=== PATIENT | female | born 1995 | race Caucasian/White ===

== ENCOUNTER 2023-06-30 18:47 | Outpatient (RCR) | payer MEDICAID, SELFPAY | END 2023-06-30 23:59 | disposition home or self-care (01) | LOC: RPT 18:47 | PROVIDERS: ATTENDING PHYSICIAN Physician Assistant | DX: M54.6 Pain in thoracic spine (principal); M54.2 Cervicalgia; M25.512 Pain in left shoulder; M25.519 Pain in unspecified shoulder; Z73.6 Limitation of activities due to disability | CPT/HCPCS: 97110; 97112; 97140 ==

== ENCOUNTER 2024-06-09 04:07 | Emergency (ER) | payer OTHER, SELFPAY ==
[2024-06-09 04:09] VITALS: BP 154/101
--- NOTE | 2024-06-09 04:27 | ED.GENMED ---
History of Present Illness
General
Chief Complaint: Back Pain
Source: patient, records and family (Mother)
Exam Limitations: none
Time Seen by Provider: 06/09/24 04:16
Nursing documentation reviewed up to this point in time: agreed with
History of Present Illness
History of Present Illness:
29-year-old female with a past medical history of migraines, anxiety, opioid use disorder who presents to the emergency room with her mother for evaluation of back pain. Patient reports onset of symptoms a few days ago and over the past few hours
they have been more intense and 'spasming.' She reports pain in the lower thoracic region. She says it radiates across her back. Worse with movement. She says that the pain was so intense that she had an episode of vomiting tonight. She denies
any associated weakness or numbness in her extremities. She denies any saddle anesthesia. Denies any bowel or bladder incontinence. She denies any direct trauma but says that she frequently lifts weights and says this is a common trigger for her
back pain. She was seen in this emergency room a little over a year ago with similar symptoms�she says that today's episode feels identical. She had MRI at that time which showed no serious spinal pathology and she says she went for physical
therapy which did help her symptoms somewhat. She had been on Suboxone for opioid use disorder but this was discontinued a few weeks ago. She has been taking gabapentin and Flexeril for her back pain today which she says has not helped. She also
tried some meloxicam yesterday which did not help.
Past History
Past History
ED Past Medical History: Other (migraines)
ED Past Surgical History: None
Social History
Tobacco: Smoker
Alcohol: Binge drinker (Underwent alcohol rehabilitation January 17 to 02/12/2012. Has been sober since.)
Drug: Marijuana
Personal: Single
Living: with family
Employment: Employed
Review of Systems
Review of Systems
All Other Systems: ROS reviewed and negative except as documented in HPI and ROS
Constitutional: Denies fever or chills
Respiratory: Denies trouble breathing
Cardiac: Denies chest pain
ABD/GI: Reports vomiting; Denies abdominal pain or nausea
: Denies flank pain or incontinence
Musculoskeletal: Reports back pain; Denies neck pain
Neurological: Denies headache, weakness or numbness
Phy Exam
Physical Exam
Physical Exam:
General: Awake, alert, oriented x3; appears uncomfortable
Head: Normocephalic, atraumatic
Eyes: Conjunctiva normal
Throat: Airway intact, handling secretions
Neck: Trachea midline
Lungs: Clear to auscultation bilaterally, no wheezing, rales, rhonchi
Heart: Regular rate and rhythm, no murmurs, gallops, or rubs
Abd: Soft, non distended, nontender
Back: No midline tenderness of the thoracic or lumbar spine; at the level of T11/T12 she has paraspinal tenderness bilaterally
Neuro: Cranial nerves grossly intact, speech fluid; motor and sensory function is intact and symmetric upper and lower extremities bilaterally
Extremities: No edema in extremities, equal pulses in all extremities
Scores
Heart Failure Risk
Heart Failure Risk Score: Not Applicable
Heart Score for Chest Pain Patients
STEMI patient?: Not applicable
Withdrawal Assessment of Alcohol
Withdrawal Assessment Completed?: Not applicable
Course
Orders/Labs/Results
Orders:
Orders
06/09/24 04:25
Acetaminophen 1000MG/100Ml [Ofirmev] 1,000 mg in 100 ml IV ONCE
Acetaminophen IV Indication:: ED Narcotic History-ONCE
Ketorolac [Toradol] 15 mg IV NOW STA
Lidocaine [Lidocaine 4% Patch] 1 patch TOPICAL ONCE ONE
Apply Lidocaine patch(s) to:: back
06/09/24 04:30
Test Result ONCE
06/09/24 04:36
Ketamine 16 mg 0.9% Sodium Chloride 50 ml [Nss] 50 ml IV NOW
06/09/24 05:00
HCG, Urine Qualitative Screen Urgent
Date Specimen was Collected: 06/09/24
Time Specimen was Collected: 04:50
Urinalysis Reflex To Culture Urgent
Date Specimen was Collected: 06/09/24
Time Specimen was Collected: 04:50
06/09/24 05:06
0.9% Sodium Chloride 500 ml [Nss] 500 ml IV ONCE
Abnormal Lab Results
06/09/24
05:00
Urine Ketones 1+ A
(Negative)
Vital Signs
Initial and Last Documented VS:
Initial Vital Signs
Temp Pulse Resp BP Pulse Ox
36.6 C 62 24 154/101 100
06/09/24 04:09 06/09/24 04:09 06/09/24 04:09 06/09/24 04:09 06/09/24 04:09
Last Documented Vital Signs
Temp Pulse Resp BP Pulse Ox
36.6 C 83 15 136/95 98
06/09/24 04:09 06/09/24 05:14 06/09/24 05:14 06/09/24 05:14 06/09/24 05:14
MDM/Problems Addressed
Differential Diagnosis Includes:
Myofascial strain, vertebral fracture, disc herniation
MDM/Problems Addressed:
29-year-old female presents with back pain as described above; she has had identical symptoms in the past most recently about a year ago. She had an MRI a little over a year ago which showed no serious pathology. She says that this improved with
PT. For this episode she believes it may have been set up with lifting. She says that she has tried gabapentin and Flexeril without improvement also tried some meloxicam yesterday. She has no red flag symptoms today. Hypertensive but otherwise
normal vitals. Physical exam as above. Will treat symptomatically�at this point no red flag symptoms and no midline tenderness, no indication for emergent imaging. We will send a UA and hCG although she denies urinary symptoms. Will treat with
Toradol, Tylenol, Lidoderm; patient says she has been treated with ketamine in the past with success; I think it would be reasonable to trial a low-dose of ketamine for pain control. Will avoid opioids given her history.
Patient is feeling much better after ED treatment. Awaiting urine studies but will continue to monitor�at this point pain is well-controlled and she is able to ambulate without issue.
UA negative for infection, hCG negative. Patient pain is well-controlled, she is now sleeping comfortably in bed. Stable for discharge will prescribe physical therapy as an outpatient as she has had this has helped in the past. She will follow-up
with her primary care physician. Spoke turn precautions all questions answered.
Chronic conditions affecting care:
Opioid use disorder
Acute Exacerbation and/or Progression of Chronic Illness:
Acutely hypertensive likely related to pain�treat pain but no emergent antihypertensives indicated at present
Acute Exacerbation and/or Progression of Chronic Illness: HTN
*Radiology
Radiology exam reviewed: radiology read reviewed (Reviewed MRI from 03/2023)
*Pulse Oximetry
Patient hypoxic: no
*Critical Care Note
Total Time (30-74mins, 75-104mins- exclusive of procedures): Not Applicable
Data Reviewed
Review of Other/Old Records Reveals: Records, Radiology Studies and Testing
Source: patient, records and family
Further Testing Considered But Not Given:
Considered need for x-ray of the back, CT of the back, MRI of the back but with no red flag symptoms, no midline tenderness, identical symptoms in the past related to myofascial strain no indication for emergent re-imaging
ED Attending Note
-
Portions of this chart may have been created with voice recognition software.� Occasional wrong word or��sound alike� substitutions may have occurred due to the inherent limitations of voice recognition software.
Discharge Plan
Departure
Patient Disposition: Home (Routine Discharge)
Date of Disposition: 06/09/24
Time of Disposition: 06:05
Patient with high blood pressure during this ER visit?: Yes
Discharge Problem:
Acute thoracic myofascial strain
Instructions: Back Pain
Prescriptions:
No Action
clonazepam 0.5 MG tablet
0.5 mg PO Q6HPRN PRN (Reason: anxiety)
lidocaine [Lidoderm] 5 % adhesive patch,medicated
1 patch topical DAILY Qty: 30 0RF
metaxalone 800 mg tablet
800 mg PO TID PRN (Reason: muscle pain) Qty: 20 0RF
gabapentin 600 mg tablet
600 mg PO TID Qty: 60 0RF
Referrals:
Mona Ulrich PA [Family Provider] - Follow up in 2-3 days
Activity Restrictions/Additional Instructions:
Thank you for visiting the Emergency Department at [facility].
1. Please schedule a follow up appointment as directed. Call first thing tomorrow morning to make an appointment.
2. If indicated, please take your medications as instructed and indicated on discharge paperwork.
3. If any of your symptoms do not improve, or persist, or become more severe within 6-12 hours, please return to the emergency department for further care.
4. Please return to the emergency department if you develop a headache, neck pain/stiffness, fever greater than 100.4F, chest pain, shortness of breath, persistent nausea, vomiting, slurred speech, difficulty walking, numbness/tingling, weakness,
signs of infection or any other symptoms that are worrisome to you.
Please call [phone] if you have any questions.
Interventions
Interventions:
*Risk Screen - Suicide Last Done: 06/09/24 04:09
*General Assessment Last Done: 06/09/24 04:09
*Neglect/Abuse Screening Last Done: 06/09/24 04:09
*ED COVID-19 Vaccine History Last Done: 06/09/24 04:09
ED-Musculoskeletal Assessment Last Done: 06/09/24 04:29
Discharge Date and Time
Print Language: MONTSERRATIAN
[2024-06-09 04:29] VITALS: BMI 20.6
[2024-06-09] MEDS: TORADOL 15 MG IV (04:52)
[2024-06-09] MEDS: LIDOCAINE 4% PATCH 1 PATCH TOPICAL (04:52)
[2024-06-09] MEDS: OFIRMEV 100 IV (04:52)
[2024-06-09] MEDS: KETAMINE 51.6 MG IV (05:01)
[2024-06-09] MEDS: NSS 500 IV (05:06)
[2024-06-09 05:14] VITALS: BP 136/95
[2024-06-09 05:23] LABS: HCG, Urine Qualitative Screen Negative
[2024-06-09 05:27] LABS: Urine Albumin Negative (Neg - Trace); Urine Bilirubin Negative (Negative); Urine Character Clear (Clear); Urine Color Yellow; Urine Glucose Negative (Negative); Urine Ketone 1+ (Negative); Urine Leukocyte Negative (Negative); Urine Nitrite Negative (Negative); Urine Occult Blood Negative (Negative); Urine Urobilinogen Negative (Neg - 1+)
[2024-06-09 05:30] VITALS: BP 146/90
[2024-06-09 06:00] VITALS: BP 139/83
== END 2024-06-09 06:36 | disposition home or self-care (01) ==
LOC: EMR 04:07
PROVIDERS: EMERGENCY PHYSICIAN Emergency Medicine; FAMILY PHYSICIAN Physician Assistant
DX: S29.012A Strain of muscle and tendon of back wall of thorax, initial encounter (principal); X58.XXXA Exposure to other specified factors, initial encounter; I10 Essential (primary) hypertension; F17.200 Nicotine dependence, unspecified, uncomplicated
CPT/HCPCS: 99284; 96374; 81003; 81025

== ENCOUNTER 2024-06-09 22:10 | Emergency (ER) | payer OTHER, SELFPAY ==
[2024-06-09 22:12] VITALS: BP 160/107; BMI 22.0
[2024-06-10] VITALS: BP 115/84
[2024-06-10] MEDS: TORADOL 15 MG IV (01:39)
[2024-06-10] MEDS: BENADRYL 25 MG IV (01:39)
[2024-06-10] MEDS: DECADRON 10 MG IV (01:39)
[2024-06-10] MEDS: HALDOL 2 MG IV (01:40)
[2024-06-10] MEDS: NSS 500 IV (01:48)
[2024-06-10 02:00] VITALS: BP 116/82
--- NOTE | 2024-06-10 02:40 | ED.GENMED ---
Addendum entered and electronically signed by Daisy López PA-C 06/10/24 14:49:
06/10/2024-- Patient called requesting medications be sent to the pharmacy. Medications have been sent.
Original Note:
History of Present Illness
General
Chief Complaint: Back Pain
Source: patient and family
Time Seen by Provider: 06/09/24 23:02
History of Present Illness
History of Present Illness:
29-year-old female who presents stating she needs 'help'. She states she feels like she is losing her mind. She has been off Suboxone now for about 2 weeks. She states that she has had back pain and spasms around her chest wall from vomiting.
She was here yesterday and got ketamine. States felt better for a little bit. At home she has been doing ketamine on the street occasionally and taking gabapentin. She tried meloxicam. She tried kratom. She tried marijuana. Patient states that
she has been yelling at home and neighbors are complaining. She states she does not know what else to do. She has seen her doctor. She has had back pain now for years. She used to lift weights. She has been trying to go to the gym and swim.
She tried the sauna and tried a hot tub. She states she knows she does not want to but requests just 'a half a Percocet'. On my initial evaluation patient was sleeping. No chest pain. No abdominal pain. No fevers.
Past History
Past History
ED Past Medical History: Other (migraines, substance abuse, ADHD, anxiety, depression)
ED Past Surgical History: None
Social History
Tobacco: Smoker
Alcohol: Binge drinker (Underwent alcohol rehabilitation January 17 to 02/12/2012. Has been sober since.)
Drug: Former user (Former opiate abuser) and Marijuana
Personal: Single
Living: with family
Employment: Employed
Phy Exam
Physical Exam
Physical Exam:
CONSTITUTIONAL Patient alert and oriented to person, place and time. Well-appearing. Vital signs reviewed.
HEAD atraumatic, normocephalic.
EYES eyelids normal to inspection, Pupils equally round and reactive to light, Extraocular muscles intact, Conjunctiva normal, Sclera normal.
NECK normal range of motion, Trachea midline, no jugular venous distention.
RESPIRATORY CHEST No respiratory distress noted, Chest expansion equal, Bilateral breath sounds clear.
CARDIOVASCULAR regular rate and rhythm, Heart sounds normal.
ABDOMEN abdomen nontender, Bowel sounds normal. No distention.
BACK normal inspection, no obvious deformities, no midline tenderness. Some tenderness noted to the paraspinal musculature of the thoracic region
UPPER EXTREMITY range of motion normal, Motor strength normal, no cyanosis, no edema.
LOWER EXTREMITY range of motion normal, Motor strength normal, no cyanosis, no edema.
NEURO Speech normal, No focal motor deficits, [place] coma scale 15, Memory normal, Cranial Nerves intact to screening exam.
SKIN skin warm, dry, and normal in color.
PSYCHIATRIC patient oriented to person place and time, anxious affect.
Course
Orders/Labs/Results
Orders:
Orders
06/10/24 01:33
Ketorolac [Toradol] 15 mg IV NOW STA
06/10/24 01:34
Dexamethasone Sod Phosphate [Decadron] 10 mg IV NOW STA
06/10/24 01:36
Diphenhydramine [Benadryl] 25 mg IV NOW STA
Haloperidol Lactate [Haldol] 2 mg IV NOW STA
06/10/24 01:48
0.9% Sodium Chloride 500 ml [Nss] 500 ml IV BOLUS
Vital Signs
Initial and Last Documented VS:
Initial Vital Signs
Temp Pulse Resp BP Pulse Ox
98 F 63 16 160/107 99
06/09/24 22:12 06/09/24 22:12 06/09/24 22:12 06/09/24 22:12 06/09/24 22:12
Last Documented Vital Signs
Temp Pulse Resp BP Pulse Ox
98 F 59 19 115/84 97
06/09/24 22:12 06/10/24 01:51 06/10/24 01:51 06/10/24 00:00 06/10/24 01:51
MDM/Problems Addressed
MDM/Problems Addressed:
Acute Suboxone withdrawal, chronic back pain
*Pulse Oximetry
Patient hypoxic: no
*Critical Care Note
Total Time (30-74mins, 75-104mins- exclusive of procedures): Not Applicable
Data Reviewed
Review of Other/Old Records Reveals: Records (Patient is presented here in the past for thoracic back pain dating back to February 2023) and Other (MRI from March 2023 reviewed)
Source: patient and family
Prescriptions/Medications Considered But Not Given:
Considered narcotics as patient requested but patient has a history of opiate abuse. Is trying to get off of Suboxone and this is not current treatment.
Further Testing Considered But Not Given:
Considered imaging but pain has been somewhat chronic and has had previous MRI in March 2023
Patient Management
Escalation/DeEscalation of care consider admission/obs:
Patient appears well and is stable. Her exam is essentially normal. She is quite anxious about her scenario. Her thoracic back pain dates back many years. I do suspect some element of Suboxone withdrawal. For now we will trial course of
steroids, meloxicam and clonidine.
Outpatient follow-up with PCP recommended
ED Attending Note
-
Portions of this chart may have been created with voice recognition software.� Occasional wrong word or��sound alike� substitutions may have occurred due to the inherent limitations of voice recognition software.
Discharge Plan
Departure
Patient Disposition: Home (Routine Discharge)
Date of Disposition: 06/10/24
Time of Disposition: 02:55
Patient with high blood pressure during this ER visit?: No
Discharge Problem:
Suboxone withdrawal, Chronic back pain
Instructions: Upper Back Pain (DC)
Prescriptions:
No Action
clonazepam 0.5 MG tablet
0.5 mg PO Q6HPRN PRN (Reason: anxiety)
lidocaine [Lidoderm] 5 % adhesive patch,medicated
1 patch topical DAILY Qty: 30 0RF
metaxalone 800 mg tablet
800 mg PO TID PRN (Reason: muscle pain) Qty: 20 0RF
gabapentin 600 mg tablet
600 mg PO TID Qty: 60 0RF
Referrals:
Mona Ulrich PA [Family Provider] -
Activity Restrictions/Additional Instructions:
Suboxone withdrawal
Interventions
Interventions:
*Risk Screen - Suicide Last Done: 06/09/24 22:12
*Neglect/Abuse Screening Last Done: 06/09/24 22:12
ED- Fall Risk Assessment Last Done: 06/09/24 22:12
ED-Musculoskeletal Assessment Last Done: 06/09/24 22:50
Discharge Date and Time
Print Language: CUBAN
[2024-06-10 03:00] VITALS: BP 129/91
[2024-06-10 04:00] VITALS: BP 117/86
[2024-06-10 05:00] VITALS: BP 114/75
== END 2024-06-10 06:00 | disposition home or self-care (01) ==
LOC: EMR 22:10
PROVIDERS: EMERGENCY PHYSICIAN Emergency Medicine; FAMILY PHYSICIAN Physician Assistant
DX: F19.239 Other psychoactive substance dependence with withdrawal, unspecified (principal); G89.29 Other chronic pain; M54.9 Dorsalgia, unspecified; F17.200 Nicotine dependence, unspecified, uncomplicated
CPT/HCPCS: 99284; 96374; 96375 ×3; 96361

== ENCOUNTER 2024-06-14 11:19 | Emergency (ER) | payer OTHER, SELFPAY ==
[2024-06-14 11:29] VITALS: BP 148/100
[2024-06-14 11:45] LABS: % Basophils 0.6 % (0-2); % Eosinophils 1.9 % (0-6); % Immature Granulocytes 0.3 % (0-0.5); % Lymphocytes 17.9 % (20.5-51.1); % Monocytes 8.7 % (1.7-9.3); % Neutrophils 70.6 % (42.2-75.2); Absolute Basophils 0.1 10^3/uL (0-0.2); Absolute Eosinophils 0.2 10^3/uL (0-0.7); Absolute Lymphocytes 2.2 10^3/uL (1.2-3.4); Absolute Monocytes 1.1 10^3/uL (0.1-0.6); Absolute Neutrophils 8.7 10^3/uL (1.4-6.5); Hematocrit 46.1 % (37.0-47.0); Hemoglobin 15.8 g/dL (12.0-16.0); Mean Corp Hgb Conc. 34.3 g/dL (33.0-37.0); Mean Corpuscular Hgb 31.4 pg (27.0-31.0); Mean Corpuscular Volume 91.7 fL (81.0-99.0); Mean Platelet Volume 9.4 fL (7.4-10.4); Nucleated Red Blood Cells % 0 %; Platelet Count 297 10^3/uL (130-400); Red Blood Cell Count 5.03 10^6/uL (4.20-5.40); Red Cell Dist. Width 12.5 % (11.5-14.5); White Blood Cell Count 12.3 10^3/uL (4.8-10.8)
[2024-06-14 11:56] LABS: HCG, Serum Qualitative Screen Negative
[2024-06-14 11:59] LABS: ALT (SGPT) 41 U/L (0-35); AST (SGOT) 23 U/L (14-36); Albumin 4.9 g/dl (3.5-5.0); Alkaline Phosphatase 84 U/L (38-126); Blood Urea Nitrogen 17 mg/dl (7-17); Calcium 9.9 mg/dl (8.4-10.2); Carbon Dioxide 27 mmol/L (22-30); Chloride 102 mmol/L (98-107); Glucose 109 mg/dl (70-99); Potassium 3.8 mmol/L (3.5-5.1); Sodium 138 mmol/L (135-145); Total Bilirubin 0.5 mg/dl (0.2-1.3); Total Protein 7.4 g/dl (6.3-8.2); eGFR > 60.00
--- NOTE | 2024-06-14 13:37 | ED.GENMED ---
History of Present Illness
General
Chief Complaint: Back Pain
Time Seen by Provider: 06/14/24 12:38
History of Present Illness
History of Present Illness:
29yoF hx drug abuse previously on Suboxone but tapered off 2 years ago presenting with left mid thoracic back pain worsening over the past few weeks. Pt denies fever, chills, numbness, weakness, tingling or incontinence. Pt states she had left over
Suboxone which she was using intermittently for pain. Pt also reports snorting ketamine, most recently at 3am this morning with moderate relief. Patient states that she took Adderall on Wednesday with moderate relief. Patient reports nausea and
retching. Patient states that this feels different than previous opioid withdrawal. Patient states that she lifts weights at the gym. Patient denies history of IV drug use.
Past History
Past History
ED Past Medical History: Other (migraines, substance abuse, ADHD, anxiety, depression)
ED Past Surgical History: None
Social History
Tobacco: Smoker
Alcohol: Binge drinker (Underwent alcohol rehabilitation January 17 to 02/12/2012. Has been sober since.)
Drug: Former user (Former opiate abuser) and Marijuana
Personal: Single
Living: with family
Employment: Employed
Phy Exam
Physical Exam
Physical Exam:
General: Alert, no acute distress
Head: NCAT
Eyes: clear conjunctiva
Neck: supple
Cardiac: regular rate and rhythm, no murmur
Lungs: clear to auscultation bilaterally. No wheezes, rales, or rhonchi. Speaking full unlabored sentences. No respiratory distress.
Abdomen: soft, nondistended nontender. No rebound or guarding. no CVA tenderness
MSK: no lower extremity edema bilaterally. No deformity. no midline cervical/thoracic/lumbar tenderness to palpation. left mid thoracic paraspinal tenderness to palpation with increased tonicity.
Skin: warm, dry
Neuro: Alert and oriented x3. no focal deficits. 5/5 strength bilateral hip/knee/ankle flexion and extension. 5/5 bilateral upper extremities. sensation intact, no saddle parasthesias
Course
Orders/Labs/Results
Orders:
Orders
06/14/24 11:33
Test Result ONCE
06/14/24 11:37
CMP [Comprehensive Metabolic Panel] Urgent
Complete Blood Count/With Diff Urgent
HCG, Serum Qualitative Screen Urgent
06/14/24 13:34
Acetaminophen [Tylenol] 1,000 mg PO NOW STA
Ibuprofen [Motrin] 600 mg PO NOW STA
06/14/24 13:45
Lidocaine [Lidocaine 4% Patch] 1 patch TOPICAL DAILY
Apply Lidocaine patch(s) to:: left thoracic paraspinal
06/14/24 14:45
CR Thoracic Spine 3 Views Urgent
Reason For Exam: mid back pain
Abnormal Lab Results
06/14/24
11:37
WBC 12.3 H 10^3/uL
(4.8-10.8)
MCH 31.4 H pg
(27.0-31.0)
Absolute Neuts (auto) 8.7 H 10^3/uL
(1.4-6.5)
Absolute Monos (auto) 1.1 H 10^3/uL
(0.1-0.6)
Lymphocytes % 17.9 L %
(20.5-51.1)
Glucose 109 H mg/dl
(70-99)
ALT 41 H U/L
(0-35)
06/14/24 11:37
06/14/24 11:37
Vital Signs
Initial and Last Documented VS:
Initial Vital Signs
Temp Pulse Resp BP Pulse Ox
98.3 F 85 16 148/100 100
06/14/24 11:29 06/14/24 11:29 06/14/24 11:29 06/14/24 11:29 06/14/24 11:29
Last Documented Vital Signs
Temp Pulse Resp BP Pulse Ox
98.3 F 82 15 145/88 98
06/14/24 11:29 06/14/24 16:13 06/14/24 16:13 06/14/24 16:13 06/14/24 16:13
MDM/Problems Addressed
MDM/Problems Addressed:
Patient presents to the Emergency Department with ____mid back pain
Number and Complexity of Problems Addressed at the Encounter
� Chronic conditions affecting care:
� Acute Exacerbation and/or Progression of Chronic Illness:
� Differential Diagnosis includes: muscular strain, compression fracture. Low suspicion for pyelonephritis given no urinary symptoms, no CVA tenderness bilaterally. Low suspicion for abscess given no hx IVDU, no fever, neurologically intact
Amount and/or Complexity of Data to be Reviewed and Analyzed
� I performed an independent evaluation of and my interpretation is:
EKG:
CT:
Xrays:
Laboratory Studies:
Other:
� Review of other/old records reveals:
� Clinical information was obtained by an independent historian:
� Prescriptions/Medications Considered but not given:
� Further testing considered but not performed:
Risk of Complications and/or Morbidity or Mortality of Patient Management
� Social Determinants of health affecting care:
� Discussion with other providers (PCP, Hospitalists, Consultants, etc):
� Escalation of care including admission/observation vs risk of discharge considered: 29yoF presenting with mid thoracic paraspinal pain for the past few weeks. Pt reports snorting ketamine with relief. Pt reports taking prednisone, gabapentin,
meloxicam with minimal relief. Pt denies hx IVDU. No fever. Pt reports weight lifting. On physical exam, neurologically intact with no focal deficits. Patient seen evaluated by LEID[facility], offered inpatient admission which patient adamantly declined.
Xray reviewed, possible chronic compression deformity at T6. Discussed results with patient at bedside. Neurologically intact with no focal deficits. Patient states she has been taking gabapentin 300mg once daily. Will increase gabapentin, discharge
with spine/PCP follow up.
*Critical Care Note
Total Time (30-74mins, 75-104mins- exclusive of procedures): Not Applicable
ED Attending Note
-
Portions of this chart may have been created with voice recognition software.� Occasional wrong word or��sound alike� substitutions may have occurred due to the inherent limitations of voice recognition software.
Discharge Plan
Departure
Patient Disposition: Home (Routine Discharge)
Date of Disposition: 06/14/24
Time of Disposition: 16:34
Patient with high blood pressure during this ER visit?: No
Discharge Problem:
Chronic thoracic back pain
Instructions: Upper Back Pain (DC), BLOOD PRESSURE
Prescriptions:
No Action
clonazepam 0.5 MG tablet
0.5 mg PO Q6HPRN PRN (Reason: anxiety)
lidocaine [Lidoderm] 5 % adhesive patch,medicated
1 patch topical DAILY Qty: 30 0RF
metaxalone 800 mg tablet
800 mg PO TID PRN (Reason: muscle pain) Qty: 20 0RF
gabapentin 600 mg tablet
600 mg PO TID Qty: 60 0RF
prednisone 10 mg Tablet
See Rx Instructions .ROUTE .COMPLEX Qty: 30 0RF
Rx Instructions:
Take By Mouth:
40 mg daily x3 days, 30 mg daily x3 days,
20 mg daily x3 days, 10 mg daily x3 days.
clonidine HCl 0.1 mg tablet
0.1 mg PO Q12H Qty: 30 0RF
meloxicam 15 mg tablet
15 mg PO DAILY Qty: 20 0RF
Referrals:
Eloy Knapp MD [Active] -
Mona Ulrich PA [Family Provider] -
Activity Restrictions/Additional Instructions:
Continue taking all medications previously prescribed including gabapentin and prednisone
Take tylenol 975mg every 6 hours
Follow up primary care doctor and spine in 1-2 days
Return to the emergency department for focal weakness, incontinence, fever or new/worsening symptoms
Interventions
Interventions:
*Risk Screen - Suicide Last Done: 06/14/24 12:32
*General Assessment Last Done: 06/14/24 11:29
*Neglect/Abuse Screening Last Done: 06/14/24 12:32
*ED COVID-19 Vaccine History Last Done: 06/14/24 11:29
*Nursing Disposition Last Done: 06/14/24 16:56
ED-Musculoskeletal Assessment Last Done: 06/14/24 12:32
Discharge Date and Time
Discharge Date/Time: 06/14/24 16:56
Print Language: GABONESE
[2024-06-14] MEDS: TYLENOL 1000 MG PO (13:49)
[2024-06-14] MEDS: LIDOCAINE 4% PATCH 1 PATCH TOPICAL (13:50)
[2024-06-14] MEDS: MOTRIN 600 MG PO (13:50)
[2024-06-14 16:13] VITALS: BP 145/88
== END 2024-06-14 16:56 | disposition home or self-care (01) ==
LOC: EMR 11:19
PROVIDERS: Emergency Medicine; EMERGENCY PHYSICIAN Emergency Medicine; FAMILY PHYSICIAN Physician Assistant
DX: G89.29 Other chronic pain (principal); M54.6 Pain in thoracic spine; F17.200 Nicotine dependence, unspecified, uncomplicated
CPT/HCPCS: 99284; 72072; 80053; 84703; 85025